=== PATIENT | male | born 1985 | race Caucasian/White ===

== ENCOUNTER 2019-10-30 16:37 | Emergency (ER) | payer SELFPAY ==
[~2019-10-30] VITALS: Ht 175.3 cm; Wt 60.0 kg
[2019-10-30 16:47] VITALS: BP 111/76
== END 2019-10-30 17:48 | disposition left against medical advice (07) ==
LOC: ED 17:42
DX: K08.89 Other specified disorders of teeth and supporting structures (principal)
CPT/HCPCS: 99283